=== PATIENT | male | born 1950 | race Caucasian/White ===

== ENCOUNTER 2016-11-29 23:24 | Inpatient (IN) | payer OTHER ==
[~2016-11-29] VITALS: Ht 177.8 cm; Wt 88.4 kg
[~2016-11-29 23:24] MED LIST: 12 HOUR DECONG120 M1 PO; BACTRIM,SEPT1 TABLET PO; BUSPAR15 MG PO; CARBAMAZEPINE100 MG PO; CITALOPRAM HBR20 MG PO; Colace PO; Coreg PO; DILAUDID2 MG PO; ECOTRIN325 MG PO; Ecotrin PO; FLONASE16 G1 BOTH NARES; KEFLEX500 MG PO; LABETALOL HCL300 MG PO; LIDOCAINE700 MG TD; LISINOPRIL20 MG PO; Milk Of Magnesia,MOM PO; NASONEX17 GM BOTH NARES; NORVASC5 MG PO; OXYCONTIN20 MG; OxyCODONE PO; PANTOPRAZOLE SO40 MG PO; PERCOCET 5/31 TABLET PO; QUETIAPINE FUM100 MG PO; SENOKOT,SENN1 TABLE1 PO; ULTRAM50 MG PO; ZESTRIL20 MG PO; Zestril,Prinivil PO; oxyCODONE PO
[2016-11-30 00:11] LABS: MCH 30.7 PG (29.0-34.0); MCHC 34.6 G/DL (30.0-36.0); MCV 88.6 FL (86-99); MEAN PLAT.VOLUME 10.6 uM^3 (9.0-12.4); PLATELET COUNT 132 K/uL (156-360); RBC DIS.WIDTH-CV 12.8 % (11.8-14.6); RBC DIS.WIDTH-SD 42.2 % (39-53); WHITE BLOOD COUNT 7.3 K/uL (4.1-10.2)
[2016-11-30 00:29] LABS: CHLORIDE 102 mEq/L (99-109); POTASSIUM 3.8 mEq/L (3.7-5.4); SODIUM 140 mEq/L (136-147)
[2016-11-30 00:32] LABS: GLUCOSE 81 mg/dL (70-99)
[2016-11-30 00:33] LABS: ANION GAP 15 MEQ/L (2-14); TOTAL BILIRUBIN 0.6 mg/dL (0.0-1.0)
[2016-11-30 00:35] LABS: ALKALINE PHOSPHATASE 60 IU/L (3-129); GFR ESTIMATE (CALCULATED) > 59 mL/min/; SERUM ETHYL ALCOHOL 130 mg/dL
[2016-11-30 00:36] LABS: UREA NITROGEN (BUN) 10 mg/dL (9-23)
[2016-11-30 00:39] LABS: LIPASE 9 U/L (1.0-51.0)
[2016-11-30 03:05] LABS: ADD MIUA? NO; BILIRUBIN NEGATIVE; BLOOD NEGATIVE; COLOR YELLOW ((YELLOW)); GLUCOSE (STRIP) NEGATIVE; KETONES NEGATIVE; LEUKOCYTES NEGATIVE; NITRITE NEGATIVE; PROTEIN (STRIP) 30; SPECIFIC GRAVITY 1.009 (1.000-1.030); UROBILINOGEN 0.2 MG/DL (0.2-1.0)
[2016-11-30 03:17] LABS: AMPHETAMINE NEGATIVE (500 ng/mL); BARBITURATES NEGATIVE (200 ng/mL); BENZODIAZEPINES NEGATIVE (150 ng/mL); COCAINE NEGATIVE (150 ng/mL); INTERNAL CONTROLS VALID? YES; METHADONE NEGATIVE (200 ng/mL); METHAMPHETAMINE NEGATIVE (500 ng/mL); OPIATES (MORPHINE) PRESUMPTIVE POSITIVE (100 ng/mL); OXYCODONE PRESUMPTIVE POSITIVE (100 ng/mL); PHENCYCLIDINE NEGATIVE (25 ng/mL); PROPOXYPHENE NEGATIVE (300 ng/mL); THC CANNABINOIDS NEGATIVE (50 ng/mL); TRICYCLIC ANTIDEPRESSANTS NEGATIVE (300 ng/mL)
[2016-11-30 03:18] LABS: ADD MEDTOX COMMENT Y
[2016-11-30 06:03] VITALS: BP 138/48
[2016-11-30 08:04] VITALS: BP 113/60
[2016-11-30 15:58] VITALS: BP 161/77
[2016-11-30 21:03] VITALS: BP 133/63
[2016-12-01 07:34] VITALS: BP 186/84
[2016-12-01 10:15] VITALS: BP 183/98
[2016-12-01 15:55] VITALS: BP 173/80
[2016-12-01 21:04] VITALS: BP 169/81
[2016-12-02 07:48] VITALS: BP 151/74
[2016-12-02 15:14] VITALS: BP 147/70
[2016-12-03 07:56] VITALS: BP 145/91
[2016-12-03 10:29] VITALS: BP 161/78
[2016-12-03 15:41] VITALS: BP 176/92
[2016-12-03 17:59] VITALS: BP 148/72
[2016-12-03 21:25] VITALS: BP 195/93
[2016-12-04 07:56] VITALS: BP 167/82
[2016-12-04] MEDS ORDERED: AMLODIPINE BESY10 MG PO (08:58)
[2016-12-04] MEDS ORDERED: BUSPAR15 MG PO (08:58)
[2016-12-04] MEDS ORDERED: CELEXA40 MG PO (08:59)
[2016-12-04] MEDS ORDERED: SEROQUEL100 MG PO (09:00)
[2016-12-04] MEDS ORDERED: LISINOPRIL20 MG PO (09:00)
[2016-12-04 16:03] VITALS: BP 182/86
== END 2016-12-04 21:00 | disposition home or self-care (01) | DRG 885 ==
LOC: EME → EDBD 23:24 → EME 23:24 → ENRESERV 11-30 05:34 → 1WEST 11-30 05:34 → EDOF 11-30 05:34 → 1WEST 11-30 06:01
PROVIDERS: Emergency Medicine
DX: F33.9 Major depressive disorder, recurrent, unspecified (principal); F43.23 Adjustment disorder with mixed anxiety and depressed mood; F10.220 Alcohol dependence with intoxication, uncomplicated; Y90.6 Blood alcohol level of 120-199 mg/100 ml; T40.1X2A Poisoning by heroin, intentional self-harm, initial encounter; I10 Essential (primary) hypertension; F41.0 Panic disorder [episodic paroxysmal anxiety]; Z91.14 Patient's other noncompliance with medication regimen; K21.9 Gastro-esophageal reflux disease without esophagitis; G89.29 Other chronic pain; Z79.899 Other long term (current) drug therapy; B18.2 Chronic viral hepatitis C
CPT/HCPCS: 80053; 81003; 83690; 84999; 85027; 90839; 97150 GO; 97165 GO; 99281; 99285; G0480; J2310; J2550

== ENCOUNTER 2017-03-24 14:48 | Emergency (ER) | payer OTHER ==
[~2017-03-24] VITALS: Ht 177.8 cm; Wt 80.5 kg
[~2017-03-24 14:48] MED LIST changes: +AMLODIPINE BESY10 MG PO; +CELEXA40 MG PO; +SEROQUEL100 MG PO
[2017-03-24 16:27] LABS: HEMATOCRIT 39.4 % (38.0-50.0); HEMOGLOBIN 13.9 G/DL (12.5-16.6); MCH 30.8 PG (29.0-34.0); MCHC 35.3 G/DL (30.0-36.0); MCV 87.4 FL (86-99); PLATELET COUNT 163 K/uL (156-360); RBC DIS.WIDTH-CV 12.6 % (11.8-14.6); RBC DIS.WIDTH-SD 40.2 % (39-53); RED BLOOD COUNT 4.51 M/uL (4.00-5.50); WHITE BLOOD COUNT 7.5 K/uL (4.1-10.2)
[2017-03-24 16:38] LABS: ALBUMIN 4.7 g/dL (3.2-4.8)
[2017-03-24 16:39] LABS: CHLORIDE 105 mEq/L (99-109); POTASSIUM 4.3 mEq/L (3.7-5.4); SODIUM 138 mEq/L (136-147)
[2017-03-24 16:41] LABS: GLUCOSE 103 mg/dL (70-99); TOTAL PROTEIN 7.8 g/dL (6.4-8.3)
[2017-03-24 16:43] LABS: TOTAL BILIRUBIN 1.4 mg/dL (0.0-1.0)
[2017-03-24 16:44] LABS: ALKALINE PHOSPHATASE 80 IU/L (3-129)
[2017-03-24 16:45] LABS: CREATININE 1.1 mg/dL (0.6-1.3); GFR ESTIMATE (CALCULATED) > 59 mL/min/ (58.99-99999)
[2017-03-24 16:46] LABS: AST (GOT) 27 IU/L (2-34); UREA NITROGEN (BUN) 21 mg/dL (9-23)
[2017-03-24 16:48] LABS: ALT (GPT) 19 IU/L (3-49); LIPASE 6 U/L (1.0-51.0)
[2017-03-24] MEDS ORDERED: PREDNISONE10 M1 PO (17:59)
[2017-03-24] MEDS ORDERED: VENTOLIN HFA18 GM IH (17:59)
[2017-03-24] MEDS ORDERED: ZITHROMAX Z-PA250 MG PO (17:59)
[2017-03-24 18:16] VITALS: BP 141/79
== END 2017-03-24 18:17 | disposition home or self-care (01) ==
LOC: EME 14:48
PROVIDERS: Physician Assistant
DX: J40 Bronchitis, not specified as acute or chronic (principal); R11.2 Nausea with vomiting, unspecified; R19.7 Diarrhea, unspecified; R91.8 Other nonspecific abnormal finding of lung field; I10 Essential (primary) hypertension; K21.9 Gastro-esophageal reflux disease without esophagitis; F41.9 Anxiety disorder, unspecified; Z88.0 Allergy status to penicillin
CPT/HCPCS: 71046; 80053; 83690; 85027; 93005; 94640; 99281; 99284